=== PATIENT | male | born 1935 | race Caucasian/White ===

== ENCOUNTER 2016-09-06 13:35 | Inpatient (IN) ==
[2016-09-07] MEDS ORDERED: Furosemide 40 MG TABLET PO PRN (18:52)
[2016-09-07] MEDS ORDERED: Acetaminophen 325 MG TABLET PO PRN (18:52)
[2016-09-07] MEDS ORDERED: Loratadine 10 MG TABLET PO PRN (18:52)
[2016-09-07] MEDS ORDERED: Sennosides 8.6 MG TABLET PO PRN (18:52)
[2016-09-07] MEDS ORDERED: *HR* Morphine Sulfate SR (12 HR) 15 MG TABLET.ER PO PRN (18:52)
[2016-09-07] MEDS ORDERED: Magic Mouthwash 10 ML UD Cup PO PRN (18:52)
[2016-09-07] MEDS: Melatonin 3 MG TABLET PO SCH (22:48)
[2016-09-07] MEDS: Mirtazapine 15 MG TABLET PO SCH (22:48)
[2016-09-07] MEDS: Metoprolol XL (24 HR) Succ 25 MG TAB.ER.24H PO SCH (22:48)
[2016-09-07] MEDS: *HR* Morphine Sulfate SR (12 HR) 15 MG TABLET.ER PO SCH (22:49)
[2016-09-08] MEDS: *HR* Enoxaparin 40 MG/0.4 ML SYRINGE SQ SCH (05:06)
[2016-09-08 05:45] LABS: INR 1.2; Prothrombin Time 13.1 Seconds (9.4-12.1)
[2016-09-08 05:48] LABS: Activated Partial Thrombo Time 25.1 Seconds (26.0-36.0)
[2016-09-08 05:50] LABS: Basophils % 0.2 %; Eosinophils # 0.3 K/mcL (0.0-0.6); Eosinophils % 5.3 %; Hematocrit 26.8 % (37.5-50.1); Hemoglobin 9.2 g/dL (12.9-16.9); Immature Granulocytes % 0.4 % (0-4); Lymphocytes # 0.7 K/mcL (0.6-4.6); Lymphocytes % 11.8 %; Mean Corpuscular HGB Conc 34.3 g/dL (31.6-35.5); Mean Corpuscular Hemoglobin 29.6 pg (28.0-33.3); Mean Corpuscular Volume 86.2 fL (83.0-100.0); Mean Platelet Volume 9.5 fL (9.4-12.4); Monocytes # 0.7 K/mcL (0.0-1.3); Monocytes % 13.1 %; Neutrophils # 3.9 K/mcL (1.6-8.9); Platelet Count 301 K/mcL (140-400); Red Blood Count 3.11 M/mcL (4.19-5.50); Red Cell Distribution Width 17.2 % (11.5-14.5); Segmented Neutrophils % 69.2 %
[2016-09-08 05:57] LABS: BUN/Creatinine Ratio 9 (6-26); Blood Urea Nitrogen 6 mg/dL (8-26); Calcium 8.9 mg/dL (8.6-10.8); Carbon Dioxide 20 mEq/L (19-29); Chloride 103 mEq/L (98-109); Glucose 96 mg/dL (70-99); Osmolality,Calculated 273 (280-300); Potassium 4.1 mEq/L (3.5-4.5); Sodium 133 mEq/L (136-145); eGFR For African Americans > 60 (> 60); eGFR For Non-African Americans > 60 (> 60)
[2016-09-08] MEDS: Ondansetron ODT 4 MG TAB.RAPDIS SL PRN (09:47)
[2016-09-08] MEDS: Metoprolol XL (24 HR) Succ 25 MG TAB.ER.24H PO SCH ×2 (10:23→20:30)
[2016-09-08] MEDS: *HR* Morphine Sulfate SR (12 HR) 15 MG TABLET.ER PO SCH ×2 (10:23→17:12)
[2016-09-08] MEDS: Multivit/Ca/Min/Fe/FA 1 TAB TABLET PO SCH (10:27)
[2016-09-08] MEDS: Aspirin Enteric Coated 81 MG Tablet PO SCH (10:28)
[2016-09-08] MEDS: Valsartan 160 MG TABLET PO SCH (10:29)
[2016-09-08] MEDS: RESVERATROL 100 MG PO SCH (10:32)
[2016-09-08] MEDS: *HR* Amiodarone 200 MG TABLET PO SCH (10:32)
[2016-09-08] MEDS: Triamcinolone Acet 0.1% CRM 15 GM TUBE TP SCH (10:32)
[2016-09-08] MEDS: Megestrol Acetate 400 MG/10 ML UDC PO SCH (10:32)
--- NOTE | 2016-09-08 11:57 | Internal Med History&Physical ---
Date of Encounter: 09/08/16 Time of Encounter: 11:54 Internal Medicine - H&P: HPI Chief complaint: Patient deconditioning. has gastric CA. Patient was diagnosed in the ER S Admitted From: Hospital to Hospital Transfer (a) Plans for Post Hospital Care: Home History of present illness: Mr. 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 He has had a 50 pound weight loss last 6 months with the worst being in the last 2. Patient has poor appetite and I just ordered supplements in the form of ensure after each meal and at bedtime), coronary artery disease, hypertension, myocardial infarction, seizures, SVT, other Psychiatric history: no psych history - Past Surgical History Surgical History: appendectomy, cholecystectomy, coronary bypass (CABG) - Social History Smoking Status: Never smoker Smokeless Tobacco Status: No Alcohol use: none Drug use: none - Family History Mother Living Status: Father Living Status: Internal Medicine - H&P: Meds Atorvastatin [Lipitor] 40 mg PO HS 09/28/15 [History] DiphenhydraMINE [Benadryl] 25 mg PO HS 09/28/15 [History] Levothyroxine [Synthroid] 88 mcg PO QAM 09/28/15 [History] Loratadine [Claritin] 10 mg PO DAILY PRN 09/28/15 [History] Melatonin 6 mg PO HS 09/28/15 [History] Multivitamin [Multi-Day Vitamins] 1 each PO DAILY 09/28/15 [History] Omeprazole [PriLOSEC] 40 mg PO BID 09/28/15 [History] Phenytoin ER [Dilantin ER] 200 mg PO TID 09/28/15 [History] Resveratrol 100 mg PO DAILY 09/28/15 [History] Terazosin HCl 4 mg PO HS 09/28/15 [History] Triamcinolone Acetonide 1 appl TP DAILY 09/28/15 [History] Valsartan [Diovan] 320 mg PO DAILY 09/28/15 [History] Lidocaine/Prilocaine CREAM [Emla] 1 appl TP AD PRN #1 tube 10/15/15 [Rx] Magic Mouthwash 5 - 10 ml PO TID PRN #480 ml 12/02/15 [Rx] Aspirin [Lo-Dose Aspirin EC] 81 mg PO DAILY 12/18/15 [History] Mirtazapine [Remeron] 15 mg PO HS #30 tablet 02/03/16 [Rx] Furosemide [Lasix] 40 mg PO DAILY PRN #30 tablet 05/12/16 [Rx] Megestrol Acetate [Megace] 10 ml PO QAM #300 mls 05/17/16 [Rx] Oxycodone HCl [Oxaydo] 5 mg PO Q2H PRN #90 tablet.orl 07/26/16 [Rx] Prochlorperazine Maleate [Compazine] 10 mg PO Q6HR PRN #60 tablet 08/11/16 [Rx] Morphine Sulfate SR (12 HR) [MS Contin] 15 mg PO Q8HR PRN 09/01/16 [History] Sennosides [Senna] 17.2 mg PO HS PRN 09/01/16 [History] Acetaminophen [Tylenol] 650 mg PO Q6HR PRN #0 tablet 09/07/16 [Rx] Amiodarone [Cordarone] 200 mg PO DAILY #30 tablet 09/07/16 [Rx] Docusate [Colace] 100 mg PO BID capsule 09/07/16 [Rx] Metoprolol XL (24 HR) Succ [Toprol Xl] 25 mg PO BID 30 Days 09/07/16 [Rx] Morphine Sulfate SR (12 HR) [MS Contin] 15 mg PO Q8HR tablet.er 09/07/16 [Rx] Potassium Chloride [Klor-Con 10] 10 meq PO DAILY #20 tablet.er 09/07/16 [Rx] Psyllium [Metamucil Fiber Singles Packet] 1 packet PO DAILY PRN #0 powd.pack 10/17 [Rx] Allergies No Known Allergies Allergy (Verified 09/01/16 14:54) All Systems PM: A 10-system review of systems was performed and is negative for pertinent findings except as documented above in the HPI. - Constitutional Vitals: Temp Pulse Resp BP Pulse Ox 98.2 F 71 16 143/71 95 09/08/16 07:36 09/08/16 07:36 09/08/16 07:36 09/08/16 07:36 09/08/16 07:36 - Head Head exam: Present: atraumatic, normocephalic Internal Med - H&P Results - Labs CBC & Chem 7: 09/08/16 05:30 09/08/16 05:30 Labs: Short CBC 09/08/16 Range/Units 05:30 WBC 5.7 (4.3-11.1) K/mcL Hgb 9.2 L (12.9-16.9) g/dL Hct 26.8 L (37.5-50.1) % Plt Count 301 (140-400) K/mcL Neutrophils # 3.9 (1.6-8.9) K/mcL BMP 09/08/16 05:30 Sodium 133 L Potassium 4.1 Chloride 103 Carbon Dioxide 20 BUN 6 L Creatinine 0.64 L Glucose 96 Calcium 8.9 D
[2016-09-08] MEDS: Melatonin 3 MG TABLET PO SCH (20:31)
[2016-09-08] MEDS: Mirtazapine 15 MG TABLET PO SCH (20:31)
[2016-09-09] MEDS: *HR* Morphine Sulfate SR (12 HR) 15 MG TABLET.ER PO SCH ×3 (00:02→17:38)
[2016-09-09] MEDS: Metoprolol XL (24 HR) Succ 25 MG TAB.ER.24H PO SCH ×2 (11:02→21:00)
[2016-09-09] MEDS: Megestrol Acetate 400 MG/10 ML UDC PO SCH (11:02)
[2016-09-09] MEDS: RESVERATROL 100 MG PO SCH (11:03)
[2016-09-09] MEDS: Aspirin Enteric Coated 81 MG Tablet PO SCH (11:03)
[2016-09-09] MEDS: *HR* Enoxaparin 40 MG/0.4 ML SYRINGE SQ SCH (11:03)
[2016-09-09] MEDS: *HR* Amiodarone 200 MG TABLET PO SCH (11:03)
[2016-09-09] MEDS: Valsartan 160 MG TABLET PO SCH (11:06)
[2016-09-09] MEDS: Multivit/Ca/Min/Fe/FA 1 TAB TABLET PO SCH (11:06)
[2016-09-09] MEDS: Triamcinolone Acet 0.1% CRM 15 GM TUBE TP SCH (11:07)
[2016-09-09] MEDS: Melatonin 3 MG TABLET PO SCH (20:58)
[2016-09-09] MEDS: Mirtazapine 15 MG TABLET PO SCH (21:00)
[2016-09-10] MEDS: *HR* Morphine Sulfate SR (12 HR) 15 MG TABLET.ER PO SCH ×5 (00:12→23:38)
[2016-09-10] MEDS: *HR* Enoxaparin 40 MG/0.4 ML SYRINGE SQ SCH (04:32)
[2016-09-10] MEDS: Multivit/Ca/Min/Fe/FA 1 TAB TABLET PO SCH ×2 (08:35→09:00)
[2016-09-10] MEDS: Megestrol Acetate 400 MG/10 ML UDC PO SCH (08:35)
[2016-09-10] MEDS: RESVERATROL 100 MG PO SCH (08:36)
[2016-09-10] MEDS: *HR* Amiodarone 200 MG TABLET PO SCH ×2 (08:37→11:38)
[2016-09-10] MEDS: Aspirin Enteric Coated 81 MG Tablet PO SCH ×2 (08:37→11:38)
[2016-09-10] MEDS: Metoprolol XL (24 HR) Succ 25 MG TAB.ER.24H PO SCH ×3 (08:37→21:52)
[2016-09-10] MEDS: Triamcinolone Acet 0.1% CRM 15 GM TUBE TP SCH (08:59)
[2016-09-10] MEDS: Valsartan 160 MG TABLET PO SCH (08:59)
--- NOTE | 2016-09-10 09:33 | Internal Med Progress Note ---
Date of Encounter: 09/10/16 Time of Encounter: 09:30 - Assessment and plan (1) Physical deconditioning Current Visit: Yes Status: Chronic Assessment and plan: Physical deconditioning secondary to liver cancer. PT and OT continue to work on improving endurance, tolerance, gait, transfer, safety and improving ADL. - Time Spent With Patient less than 15 minutes - Subjective Interval history: No new voiced complaints today. Feels as though he is getting stronger. Still has some swallowing difficulty with pills. Tolerating full liquids. He has been walking yesterday and today. No chest pain or shortness of breath no nausea no vomiting - Constitutional Vitals: Temp Pulse Resp BP Pulse Ox 97.9 F 111 20 148/75 97 09/10/16 07:01 09/10/16 07:01 09/10/16 07:01 09/10/16 07:01 09/10/16 07:01 General appearance: Present: A&O X 3, pleasant, no acute distress - Respiratory Respiratory exam: Present: CTAB. Absent: accessory muscle use, rales, rhonchi, wheezes - Cardiovascular Cardiovascular exam: Present: RRR, +S1, +S2. Absent: diastolic murmur, gallop, rubs, systolic murmur - GI/Abdominal GI/Abdominal exam: Present: normal bowel sounds, soft, no peritoneal signs. Absent: distended, tenderness - Extremities Exam Extremities exam: Present: warm, radial pulses palpable and symetrical. Absent : calf tenderness, cyanotic, pedal edema Internal Medicine: Result - Labs CBC & Chem 7: 09/08/16 05:30 09/08/16 05:30 - ABG Interpretation ABG results: PT/INR, D-dimer PT 13.1 Seconds (9.4-12.1) H 09/08/16 05:30 Consult Discharge Plan - Plan Referrals: Cody Monge MD [Primary Care Provider] -
[2016-09-10] MEDS: Psyllium 1 PACKET POWD.PACK PO PRN (13:38)
[2016-09-10] MEDS: Phenytoin Oral Susp 100 MG/4 ML UDC PO SCH ×2 (15:43→21:58)
[2016-09-10] MEDS: Melatonin 3 MG TABLET PO SCH ×2 (21:52→23:51)
[2016-09-10] MEDS: *HR* OxyCODONE Immed Rel 5 MG TABLET PO PRN (21:53)
[2016-09-10] MEDS: Mirtazapine 15 MG TABLET PO SCH (21:53)
[2016-09-11] MEDS: *HR* OxyCODONE Immed Rel 5 MG TABLET PO PRN (05:10)
[2016-09-11] MEDS: *HR* Enoxaparin 40 MG/0.4 ML SYRINGE SQ SCH (05:11)
--- NOTE | 2016-09-11 08:28 | Internal Med Progress Note ---
Date of Encounter: 09/11/16 Time of Encounter: 08:26 - Assessment and plan (1) Muscular deconditioning Current Visit: Yes Status: Acute Assessment and plan: Patient has gastric CA with metastases to the liver. He has become deconditioned due to treatments and general weight loss. (2) Cancer associated pain Current Visit: No Status: Chronic Assessment and plan: This being taken care of with pain he states is comfortable - Time Spent With Patient less than 15 minutes - Subjective Interval history: Mr. Hicks is no complaints he looks stronger to me and is take care of some of his own personal care - Constitutional Vitals: Temp Pulse Resp BP Pulse Ox 97.9 F 78 18 147/75 97 09/11/16 07:43 09/11/16 07:43 09/11/16 07:43 09/11/16 07:43 09/11/16 07:43 General appearance: Present: A&O X 3, pleasant, no acute distress - Head Head exam: Present: atraumatic, normocephalic - Neck Neck exam general surgery: Present: supple, trachea midline. Absent: lymphadenopathy - Respiratory Respiratory exam: Present: CTAB. Absent: accessory muscle use, rales, rhonchi, wheezes - Cardiovascular Cardiovascular exam: Present: RRR, +S1, +S2. Absent: diastolic murmur, gallop, rubs, systolic murmur Internal Medicine: Result - Labs CBC & Chem 7: 09/08/16 05:30 09/08/16 05:30 Labs: Lab is stable - ABG Interpretation ABG results: PT/INR, D-dimer PT 13.1 Seconds (9.4-12.1) H 09/08/16 05:30 Consult Discharge Plan - Plan Referrals: Cody Monge MD [Primary Care Provider] -
[2016-09-11] MEDS: Ondansetron ODT 4 MG TAB.RAPDIS SL PRN (09:16)
[2016-09-11] MEDS: Phenytoin Oral Susp 100 MG/4 ML UDC PO SCH ×3 (09:51→22:44)
[2016-09-11] MEDS: Multivitamin Liquid 15 ML UDC PO SCH (09:51)
[2016-09-11] MEDS: Valsartan 80 MG TABLET PO SCH (09:52)
[2016-09-11] MEDS: Megestrol Acetate 400 MG/10 ML UDC PO SCH (09:52)
[2016-09-11] MEDS: *HR* Morphine Sulfate SR (12 HR) 15 MG TABLET.ER PO SCH ×2 (09:52→16:12)
[2016-09-11] MEDS: *HR* Amiodarone 200 MG TABLET PO SCH (09:53)
[2016-09-11] MEDS: Triamcinolone Acet 0.1% CRM 15 GM TUBE TP SCH (09:53)
[2016-09-11] MEDS: Aspirin Enteric Coated 81 MG Tablet PO SCH (09:53)
[2016-09-11] MEDS: RESVERATROL 100 MG PO SCH (09:53)
[2016-09-11] MEDS: Metoprolol XL (24 HR) Succ 25 MG TAB.ER.24H PO SCH ×2 (09:53→22:48)
[2016-09-11] MEDS: Melatonin 3 MG TABLET PO SCH (22:48)
[2016-09-11] MEDS: Mirtazapine 15 MG TABLET PO SCH (22:49)
[2016-09-12] MEDS: *HR* Morphine Sulfate SR (12 HR) 15 MG TABLET.ER PO SCH ×4 (00:39→23:26)
[2016-09-12 05:38] LABS: Basophils % 0.1 %; Eosinophils % 0.5 %; Hematocrit 22.8 % (37.5-50.1); Hemoglobin 7.7 g/dL (12.9-16.9); Immature Granulocytes % 0.4 % (0-4); Lymphocytes # 0.5 K/mcL (0.6-4.6); Lymphocytes % 6.9 %; Mean Corpuscular HGB Conc 33.8 g/dL (31.6-35.5); Mean Corpuscular Hemoglobin 29.5 pg (28.0-33.3); Mean Corpuscular Volume 87.4 fL (83.0-100.0); Mean Platelet Volume 9.3 fL (9.4-12.4); Monocytes # 0.6 K/mcL (0.0-1.3); Monocytes % 8.6 %; Neutrophils # 6.2 K/mcL (1.6-8.9); Platelet Count 291 K/mcL (140-400); Red Blood Count 2.61 M/mcL (4.19-5.50); Red Cell Distribution Width 17.9 % (11.5-14.5); Segmented Neutrophils % 83.5 %
[2016-09-12 05:40] LABS: INR 1.3; Prothrombin Time 14.4 Seconds (9.4-12.1)
[2016-09-12 05:42] LABS: Activated Partial Thrombo Time 26.1 Seconds (26.0-36.0)
[2016-09-12 05:53] LABS: BUN/Creatinine Ratio 29 (6-26); Blood Urea Nitrogen 20 mg/dL (8-26); Calcium 8.8 mg/dL (8.6-10.8); Carbon Dioxide 18 mEq/L (19-29); Chloride 102 mEq/L (98-109); Glucose 115 mg/dL (70-99); Osmolality,Calculated 272 (280-300); Potassium 4.6 mEq/L (3.5-4.5); Sodium 129 mEq/L (136-145); eGFR For African Americans > 60 (> 60); eGFR For Non-African Americans > 60 (> 60)
[2016-09-12] MEDS: *HR* Enoxaparin 40 MG/0.4 ML SYRINGE SQ SCH (07:30)
[2016-09-12] MEDS: *HR* Amiodarone 200 MG TABLET PO SCH (08:26)
[2016-09-12] MEDS: Metoprolol XL (24 HR) Succ 25 MG TAB.ER.24H PO SCH ×2 (08:26→21:07)
[2016-09-12] MEDS: Aspirin Enteric Coated 81 MG Tablet PO SCH (08:26)
[2016-09-12] MEDS: Megestrol Acetate 400 MG/10 ML UDC PO SCH (08:27)
[2016-09-12] MEDS: RESVERATROL 100 MG PO SCH (08:27)
[2016-09-12] MEDS: Valsartan 80 MG TABLET PO SCH (08:30)
[2016-09-12] MEDS: Phenytoin Oral Susp 100 MG/4 ML UDC PO SCH ×3 (08:31→21:10)
[2016-09-12] MEDS: Triamcinolone Acet 0.1% CRM 15 GM TUBE TP SCH (08:33)
[2016-09-12] MEDS: Multivitamin Liquid 15 ML UDC PO SCH (08:33)
--- NOTE | 2016-09-12 13:43 | Internal Med Progress Note ---
Date of Encounter: 09/12/16 Time of Encounter: 13:41 - Assessment and plan (1) Muscular deconditioning Current Visit: Yes Status: Acute (2) Cancer associated pain Current Visit: No Status: Chronic - Subjective Interval history: Mr. Hicks is no complaints he looks stronger to me and is take care of some of his own personal care. Mr. Hicks is walked 150 feet. He is taking her personal issues. Very pleased and somewhat surprised that his level. He is due for chemotherapy which were checking on those dates. It seems to knock the starch him for a few days. So we will try to get him up to [place] in terms of his strength. He is eating a little bit and requesting more food so I am going to put him on a soft . Very mild whatever he wishes and has no trouble with a regular diet with ground meat - Constitutional Vitals: Temp Pulse Resp BP Pulse Ox 98.5 F 74 16 108/67 97 09/11/16 19:32 09/11/16 19:32 09/11/16 19:32 09/11/16 19:32 09/11/16 19:32 General appearance: Present: A&O X 3, pleasant, no acute distress - Head Head exam: Present: atraumatic, normocephalic - Neck Neck exam general surgery: Present: supple, trachea midline. Absent: lymphadenopathy - Respiratory Respiratory exam: Present: CTAB. Absent: accessory muscle use, rales, rhonchi, wheezes - Cardiovascular Cardiovascular exam: Present: RRR, +S1, +S2. Absent: diastolic murmur, gallop, rubs, systolic murmur Internal Medicine: Result - Labs CBC & Chem 7: 09/12/16 00:50 09/12/16 00:50 Labs: Short CBC 09/12/16 Range/Units 00:50 WBC 7.4 (4.3-11.1) K/mcL Hgb 7.7 L D (12.9-16.9) g/dL Hct 22.8 L (37.5-50.1) % Plt Count 291 (140-400) K/mcL Neutrophils # 6.2 (1.6-8.9) K/mcL BMP 09/12/16 00:50 Sodium 129 L Potassium 4.6 H Chloride 102 Carbon Dioxide 18 L BUN 20 Creatinine 0.70 L Glucose 115 H Calcium 8.8 - ABG Interpretation ABG results: PT/INR, D-dimer PT 14.4 Seconds (9.4-12.1) H 09/12/16 00:50 Consult Discharge Plan - Plan Referrals: Cody Monge MD [Primary Care Provider] -
[2016-09-12] MEDS ORDERED: D5% in 0.45% NACL 1,000 ML IVC SCH (19:15)
[2016-09-12] MEDS: Melatonin 3 MG TABLET PO SCH (21:04)
[2016-09-12] MEDS: Mirtazapine 15 MG TABLET PO SCH (21:06)
[2016-09-13] MEDS: *HR* OxyCODONE Immed Rel 5 MG TABLET PO PRN ×4 (01:33→20:13)
[2016-09-13 05:48] LABS: BUN/Creatinine Ratio 25 (6-26); Blood Urea Nitrogen 17 mg/dL (8-26); Calcium 8.9 mg/dL (8.6-10.8); Carbon Dioxide 19 mEq/L (19-29); Chloride 100 mEq/L (98-109); Glucose 108 mg/dL (70-99); Osmolality,Calculated 270 (280-300); Potassium 4.7 mEq/L (3.5-4.5); Sodium 129 mEq/L (136-145); eGFR For African Americans > 60 (> 60); eGFR For Non-African Americans > 60 (> 60)
[2016-09-13] MEDS: *HR* Enoxaparin 40 MG/0.4 ML SYRINGE SQ SCH (06:46)
[2016-09-13] MEDS: Megestrol Acetate 400 MG/10 ML UDC PO SCH (08:08)
[2016-09-13] MEDS: *HR* Morphine Sulfate SR (12 HR) 15 MG TABLET.ER PO SCH ×2 (08:08→16:21)
[2016-09-13] MEDS: Metoprolol XL (24 HR) Succ 25 MG TAB.ER.24H PO SCH ×2 (08:09→20:23)
[2016-09-13] MEDS: *HR* Amiodarone 200 MG TABLET PO SCH (08:09)
[2016-09-13] MEDS: RESVERATROL 100 MG PO SCH (08:10)
[2016-09-13] MEDS: Multivitamin Liquid 15 ML UDC PO SCH (08:17)
[2016-09-13] MEDS: Aspirin Enteric Coated 81 MG Tablet PO SCH (08:19)
[2016-09-13] MEDS: Triamcinolone Acet 0.1% CRM 15 GM TUBE TP SCH (08:19)
[2016-09-13] MEDS: Valsartan 80 MG TABLET PO SCH (11:46)
[2016-09-13] MEDS: Phenytoin Oral Susp 100 MG/4 ML UDC PO SCH ×3 (12:13→20:23)
--- NOTE | 2016-09-13 12:26 | Internal Med Progress Note ---
Date of Encounter: 09/13/16 Time of Encounter: 12:24 - Assessment and plan (1) Physical deconditioning Current Visit: Yes Status: Chronic Assessment and plan: Feels more fatigued today. We have learned from his previous hospitalization that there is no further chemotherapy planned by his oncologist. Ears been discussion of palliative care or hospice on the previous hospitalization. Physical deconditioning secondary to liver cancer. PT and OT continue to work on improving endurance, tolerance, gait, transfer, safety and improving ADL. (2) Dehydration, mild Current Visit: Yes Status: Acute Assessment and plan: Was noted to have low urinary output yesterday. IV fluids initiated with some subjective improvement the patient's level of alertness. - Time Spent With Patient less than 15 minutes - Subjective Interval history: No new voiced complaints today. However feels weaker today than usual. He is requesting that we hold off his therapy today. Still has some swallowing difficulty with pills. Tolerating full liquids. He has been walking yesterday and today. No chest pain or shortness of breath no nausea no vomiting - Constitutional Vitals: Temp Pulse Resp BP Pulse Ox 98.0 F 72 18 116/72 97 09/13/16 07:56 09/13/16 07:56 09/13/16 07:56 09/13/16 07:56 09/13/16 07:56 General appearance: Present: A&O X 3, pleasant, no acute distress - Respiratory Respiratory exam: Present: CTAB. Absent: accessory muscle use, rales, rhonchi, wheezes - Cardiovascular Cardiovascular exam: Present: RRR, +S1, +S2. Absent: diastolic murmur, gallop, rubs, systolic murmur - GI/Abdominal GI/Abdominal exam: Present: normal bowel sounds, soft, no peritoneal signs. Absent: distended, tenderness - Extremities Exam Extremities exam: Present: warm, radial pulses palpable and symetrical. Absent : calf tenderness, cyanotic, pedal edema Internal Medicine: Result - Labs CBC & Chem 7: 09/12/16 00:50 09/13/16 05:25 Labs: BMP 09/13/16 05:25 Sodium 129 L Potassium 4.7 H Chloride 100 Carbon Dioxide 19 BUN 17 Creatinine 0.68 L Glucose 108 H Calcium 8.9 - ABG Interpretation ABG results: PT/INR, D-dimer PT 14.4 Seconds (9.4-12.1) H 09/12/16 00:50 Consult Discharge Plan - Plan Referrals: Cody Monge MD [Primary Care Provider] -
[2016-09-13] MEDS: Ondansetron ODT 4 MG TAB.RAPDIS SL PRN (12:33)
[2016-09-13] MEDS: D5% in 0.45% NACL 1,000 ML IVC SCH ×2 (12:34→23:50)
[2016-09-13] MEDS: Mirtazapine 15 MG TABLET PO SCH (20:23)
[2016-09-13] MEDS: Melatonin 3 MG TABLET PO SCH (20:23)
[2016-09-14] MEDS: *HR* Morphine Sulfate SR (12 HR) 15 MG TABLET.ER PO SCH ×3 (00:07→16:08)
[2016-09-14] MEDS: Ondansetron ODT 4 MG TAB.RAPDIS SL PRN (00:14)
[2016-09-14] MEDS: *HR* Enoxaparin 40 MG/0.4 ML SYRINGE SQ SCH (05:27)
[2016-09-14] MEDS: D5% in 0.45% NACL 1,000 ML IVC SCH (09:46)
[2016-09-14] MEDS: Phenytoin Oral Susp 100 MG/4 ML UDC PO SCH ×3 (09:49→20:12)
[2016-09-14] MEDS: Megestrol Acetate 400 MG/10 ML UDC PO SCH (09:49)
[2016-09-14] MEDS: Metoprolol XL (24 HR) Succ 25 MG TAB.ER.24H PO SCH ×2 (09:49→20:12)
[2016-09-14] MEDS: Aspirin Enteric Coated 81 MG Tablet PO SCH (09:49)
[2016-09-14] MEDS: Valsartan 80 MG TABLET PO SCH (09:50)
[2016-09-14] MEDS: Multivitamin Liquid 15 ML UDC PO SCH (09:50)
[2016-09-14] MEDS: *HR* Amiodarone 200 MG TABLET PO SCH (09:50)
[2016-09-14] MEDS: RESVERATROL 100 MG PO SCH (09:50)
[2016-09-14] MEDS: Triamcinolone Acet 0.1% CRM 15 GM TUBE TP SCH (09:50)
--- NOTE | 2016-09-14 12:40 | Physical Med Progress Note ---
Date of Encounter: 09/14/16 Time of Encounter: 12:38 Physical Medicine-PN: Subj Interval history: PMR PCC note Patient has made some improvement in his function. He is able to ambulate with SBA 100-150 feet. Patient was very confused today-not oriented to year or date. Patient upset by his confusion. He will be discharged to home with hospice on 09/16/16. - Constitutional Vitals: Vital Signs Temp Pulse Resp BP Pulse Ox 09/14/16 08:02 99.1 F 87 16 101/64 95 09/13/16 19:28 98.7 F 79 16 131/77 96 Intake and Output 09/13/16 09/14/16 09/14/16 23:59 07:59 15:59 Intake Total 1000 / 1000 Balance 1000 / 1000 Intake: IV Fluids 1000 / 1000 D5% And 0.45% Nacl 1000 1000 / 1000 Ml Bag 1,000 ML @ 100 mls /hr IVC .Q10H LATANYA Rx#: [id number] Other: Meal Breakfast Percent of Meal Consumed 50% Stool Size Moderate Stool Consistency soft formed Stool Color Brown # Voids 1 1 # Bowel Movements 1 Physical Medicine-PN: Obj Data - Labs CBC & Chem 7: 09/12/16 00:50 09/13/16 05:25 - ABG Interpretation ABG results: PT/INR, D-dimer PT 14.4 Seconds (9.4-12.1) H 09/12/16 00:50 Consult Discharge Plan - Plan Referrals: Cody Monge MD [Primary Care Provider] -
--- NOTE | 2016-09-14 15:46 | Psychological Evaluation ---
Date of Encounter: 09/14/16 Time of Encounter: 11:00 History of Present Illness History of present illness: Mr. Hicks is an 81 year old male admitted to [facility] for rehabilitation. He was diagnosed with gastric cancer which has metastasized to his liver. He was seen on this date to assess his current cognitive and emotional functioning. Past Medical History Medical history: Significant for gastric cancer, atrial fibrillation, coronary artery disease, HTN, myocardial infarction and seizures. - Psychiatric History Additional Psychiatric History: There is no history of psychiatric hospitalization. Mr. Hicks reported that he has seen a counselor and been treated by a psychiatrist for anxiety/depression. There is no family history of psychiatric or mental health issues. Home Medications and Allergies Atorvastatin [Lipitor] 40 mg PO HS 09/28/15 [History] DiphenhydraMINE [Benadryl] 25 mg PO HS 09/28/15 [History] Levothyroxine [Synthroid] 88 mcg PO QAM 09/28/15 [History] Loratadine [Claritin] 10 mg PO DAILY PRN 09/28/15 [History] Melatonin 6 mg PO HS 09/28/15 [History] Multivitamin [Multi-Day Vitamins] 1 each PO DAILY 09/28/15 [History] Omeprazole [PriLOSEC] 40 mg PO BID 09/28/15 [History] Phenytoin ER [Dilantin ER] 200 mg PO TID 09/28/15 [History] Resveratrol 100 mg PO DAILY 09/28/15 [History] Terazosin HCl 4 mg PO HS 09/28/15 [History] Triamcinolone Acetonide 1 appl TP DAILY 09/28/15 [History] Valsartan [Diovan] 320 mg PO DAILY 09/28/15 [History] Lidocaine/Prilocaine CREAM [Emla] 1 appl TP AD PRN #1 tube 10/15/15 [Rx] Magic Mouthwash 5 - 10 ml PO TID PRN #480 ml 12/02/15 [Rx] Aspirin [Lo-Dose Aspirin EC] 81 mg PO DAILY 12/18/15 [History] Mirtazapine [Remeron] 15 mg PO HS #30 tablet 02/03/16 [Rx] Furosemide [Lasix] 40 mg PO DAILY PRN #30 tablet 05/12/16 [Rx] Megestrol Acetate [Megace] 10 ml PO QAM #300 mls 05/17/16 [Rx] Oxycodone HCl [Oxaydo] 5 mg PO Q2H PRN #90 tablet.orl 07/26/16 [Rx] Prochlorperazine Maleate [Compazine] 10 mg PO Q6HR PRN #60 tablet 08/11/16 [Rx] Morphine Sulfate SR (12 HR) [MS Contin] 15 mg PO Q8HR PRN 09/01/16 [History] Sennosides [Senna] 17.2 mg PO HS PRN 09/01/16 [History] Acetaminophen [Tylenol] 650 mg PO Q6HR PRN #0 tablet 09/07/16 [Rx] Amiodarone [Cordarone] 200 mg PO DAILY #30 tablet 09/07/16 [Rx] Docusate [Colace] 100 mg PO BID capsule 09/07/16 [Rx] Metoprolol XL (24 HR) Succ [Toprol Xl] 25 mg PO BID 30 Days 09/07/16 [Rx] Morphine Sulfate SR (12 HR) [MS Contin] 15 mg PO Q8HR tablet.er 09/07/16 [Rx] Potassium Chloride [Klor-Con 10] 10 meq PO DAILY #20 tablet.er 09/07/16 [Rx] Psyllium [Metamucil Fiber Singles Packet] 1 packet PO DAILY PRN #0 powd.pack 10/17 [Rx] Allergies No Known Allergies Allergy (Verified 09/01/16 14:54) Social History - Social History Social History: Mr. Hicks is but was unable to say how long he has been . He has four children (3 daughters and one son). He struggled providing dates /ages for his children and was upset/distressed by his inability to remember their ages. He has one stepson (Keith) who lives next door. Mr. Hicks reported that his and his children are his major social support network. He is a retired long distance delivery truck driver heavy. Prior to this hospital admission, he spent his days watching TV and shopping in town. - Tobacco Use Smoking Status: Former smoker - Alcohol Use Alcohol Use: none Cognitive/Emotional Assessment - Cognitive Ability Additional Findings: Mr. Hicks was alert, attentive and responsive. He was oriented for person and place and partially for time (knew the month but not the date or year). He was unable to name the current or past [place] president. He struggled providing personal information and became upset about his impaired memory. He stated "should be able to pop this right off". Speech was fluent but "scratchy". As he became more anxious/distressed, he was noted to stutter/stammer. Thought processes were logical, goal-directed and coherent. - Emotional Status Additional Findings: Mr. Hicks was pleasant, friendly and cooperative. He presented as highly anxious as the session progressed and he struggled answering questions. He noted "this is scary". He also reported that he has been treated for anxiety in the past. Mood was anxious/distressed. Affect was congruent with mood. Assessment & Plan - Diagnosis (1) Adjustment disorder with anxious mood - Treatment Plan Treatment Plan/Recommendations: Mr. Hicks will be discharged to his home with hospice care. There are no recommendations for additional psychological services at this time. He will be given emotional support through his hospice care team. Procedures - Session Time Session Start Time: 11:00 Session Stop Time: 11:30
[2016-09-14] MEDS: Melatonin 3 MG TABLET PO SCH (20:11)
[2016-09-14] MEDS: Mirtazapine 15 MG TABLET PO SCH (20:12)
[2016-09-15] MEDS: *HR* Morphine Sulfate SR (12 HR) 15 MG TABLET.ER PO SCH ×3 (02:21→16:31)
[2016-09-15] MEDS: *HR* Enoxaparin 40 MG/0.4 ML SYRINGE SQ SCH (05:57)
[2016-09-15] MEDS: Phenytoin Oral Susp 100 MG/4 ML UDC PO SCH ×3 (08:43→21:07)
[2016-09-15] MEDS: Megestrol Acetate 400 MG/10 ML UDC PO SCH (08:44)
[2016-09-15] MEDS: Metoprolol XL (24 HR) Succ 25 MG TAB.ER.24H PO SCH ×2 (08:44→21:08)
[2016-09-15] MEDS: Aspirin Enteric Coated 81 MG Tablet PO SCH (08:45)
[2016-09-15] MEDS: *HR* Amiodarone 200 MG TABLET PO SCH (08:45)
[2016-09-15] MEDS: Multivitamin Liquid 15 ML UDC PO SCH (08:47)
[2016-09-15] MEDS: Triamcinolone Acet 0.1% CRM 15 GM TUBE TP SCH (08:48)
[2016-09-15] MEDS: Valsartan 80 MG TABLET PO SCH (08:48)
[2016-09-15] MEDS: Psyllium 1 PACKET POWD.PACK PO PRN (14:07)
--- NOTE | 2016-09-15 14:10 | Internal Med Progress Note ---
Date of Encounter: 09/15/16 Time of Encounter: 14:07 - Assessment and plan (1) Muscular deconditioning Current Visit: Yes Status: Acute Assessment and plan: Stronger walking further. (2) Cancer associated pain Current Visit: No Status: Chronic Assessment and plan: Controlled - Time Spent With Patient less than 15 minutes - Subjective Interval history: Mr. Polo door household distances. He is eating better. He has more choices now and this is encouraged him to increase his intake. - Constitutional Vitals: Temp Pulse Resp BP Pulse Ox 98.8 F 76 16 132/79 96 09/15/16 07:09 09/15/16 07:09 09/15/16 07:09 09/15/16 07:09 09/15/16 07:09 General appearance: Present: A&O X 3, pleasant, no acute distress - Head Head exam: Present: atraumatic, normal inspection, normocephalic - Neck Neck exam general surgery: Present: supple, trachea midline. Absent: lymphadenopathy - Respiratory Respiratory exam: Present: CTAB. Absent: accessory muscle use, rales, rhonchi, wheezes - Cardiovascular Cardiovascular exam: Present: RRR, +S1, +S2. Absent: diastolic murmur, gallop, rubs, systolic murmur Internal Medicine: Result - Labs CBC & Chem 7: 09/12/16 00:50 09/13/16 05:25 Labs: Lab is stable. I am going to check a bilirubin. He looks slightly jaundiced. In the records indicate he is had metastases to liver - ABG Interpretation ABG results: PT/INR, D-dimer PT 14.4 Seconds (9.4-12.1) H 09/12/16 00:50 Consult Discharge Plan - Plan Referrals: Cody Monge MD [Primary Care Provider] -
[2016-09-15] MEDS: Melatonin 3 MG TABLET PO SCH (21:07)
[2016-09-15] MEDS: Mirtazapine 15 MG TABLET PO SCH (21:08)
[2016-09-15] MEDS: Ondansetron ODT 4 MG TAB.RAPDIS SL PRN (21:26)
[2016-09-16] MEDS: *HR* Morphine Sulfate SR (12 HR) 15 MG TABLET.ER PO SCH ×3 (00:15→08:45)
[2016-09-16] MEDS: *HR* Enoxaparin 40 MG/0.4 ML SYRINGE SQ SCH (05:48)
[2016-09-16 07:04] VITALS: BP 119/70
[2016-09-16 07:14] LABS: Bilirubin,Direct 1.1 mg/dL (0.0-0.5); Bilirubin,Indirect 0.4 mg/dL (0.0-1.2); Bilirubin,Total 1.5 mg/dL (0.2-1.2)
[2016-09-16] MEDS: Ondansetron ODT 4 MG TAB.RAPDIS SL PRN (08:36)
[2016-09-16] MEDS: *HR* Amiodarone 200 MG TABLET PO SCH (08:40)
[2016-09-16] MEDS: Megestrol Acetate 400 MG/10 ML UDC PO SCH (08:40)
[2016-09-16] MEDS: Triamcinolone Acet 0.1% CRM 15 GM TUBE TP SCH (08:40)
[2016-09-16] MEDS: Phenytoin Oral Susp 100 MG/4 ML UDC PO SCH (08:40)
[2016-09-16] MEDS: Multivitamin Liquid 15 ML UDC PO SCH (08:40)
[2016-09-16] MEDS: Valsartan 80 MG TABLET PO SCH (08:40)
[2016-09-16] MEDS: Aspirin Enteric Coated 81 MG Tablet PO SCH (08:40)
[2016-09-16] MEDS: Metoprolol XL (24 HR) Succ 25 MG TAB.ER.24H PO SCH (08:41)
[2016-09-16] MEDS: *HR* OxyCODONE Immed Rel 5 MG TABLET PO PRN (11:46)
--- NOTE | 2016-09-16 13:25 | Discharge Summary ---
Date of Encounter: 09/16/16 Time of Encounter: 13:23 - Discharge Diagnosis (1) Muscular deconditioning Priority: Primary Status: Acute (2) Cancer associated pain Priority: Secondary Status: Chronic - Discharge Medications Home Medications: Atorvastatin [Lipitor] 40 mg PO HS 09/28/15 [History] DiphenhydraMINE [Benadryl] 25 mg PO HS 09/28/15 [History] Levothyroxine [Synthroid] 88 mcg PO QAM 09/28/15 [History] Loratadine [Claritin] 10 mg PO DAILY PRN 09/28/15 [History] Melatonin 6 mg PO HS 09/28/15 [History] Multivitamin [Multi-Day Vitamins] 1 each PO DAILY 09/28/15 [History] Omeprazole [PriLOSEC] 40 mg PO BID 09/28/15 [History] Phenytoin ER [Dilantin ER] 200 mg PO TID 09/28/15 [History] Resveratrol 100 mg PO DAILY 09/28/15 [History] Terazosin HCl 4 mg PO HS 09/28/15 [History] Triamcinolone Acetonide 1 appl TP DAILY 09/28/15 [History] Valsartan [Diovan] 320 mg PO DAILY 09/28/15 [History] Lidocaine/Prilocaine CREAM [Emla] 1 appl TP AD PRN #1 tube 10/15/15 [Rx] Magic Mouthwash 5 - 10 ml PO TID PRN #480 ml 12/02/15 [Rx] Aspirin [Lo-Dose Aspirin EC] 81 mg PO DAILY 12/18/15 [History] Mirtazapine [Remeron] 15 mg PO HS #30 tablet 02/03/16 [Rx] Furosemide [Lasix] 40 mg PO DAILY PRN #30 tablet 05/12/16 [Rx] Megestrol Acetate [Megace] 10 ml PO QAM #300 mls 05/17/16 [Rx] Oxycodone HCl [Oxaydo] 5 mg PO Q2H PRN #90 tablet.orl 07/26/16 [Rx] Prochlorperazine Maleate [Compazine] 10 mg PO Q6HR PRN #60 tablet 08/11/16 [Rx] Morphine Sulfate SR (12 HR) [MS Contin] 15 mg PO Q8HR PRN 09/01/16 [History] Sennosides [Senna] 17.2 mg PO HS PRN 09/01/16 [History] Acetaminophen [Tylenol] 650 mg PO Q6HR PRN #0 tablet 09/07/16 [Rx] Amiodarone [Cordarone] 200 mg PO DAILY #30 tablet 09/07/16 [Rx] Docusate [Colace] 100 mg PO BID capsule 09/07/16 [Rx] Metoprolol XL (24 HR) Succ [Toprol Xl] 25 mg PO BID 30 Days 09/07/16 [Rx] Morphine Sulfate SR (12 HR) [MS Contin] 15 mg PO Q8HR tablet.er 09/07/16 [Rx] Potassium Chloride [Klor-Con 10] 10 meq PO DAILY #20 tablet.er 09/07/16 [Rx] Psyllium [Metamucil Fiber Singles Packet] 1 packet PO DAILY PRN #0 powd.pack 10/17 [Rx] Allergies/Adverse Reactions: Allergies No Known Allergies Allergy (Verified 09/01/16 14:54) Date of admission: 09/07/16 17:25 Primary care physician: Cody Monge MD Consults: 09/07/16 18:44 Consult to Nutrition [CONS] Routine Comment: Consulting Provider: NUTRITION Reason for Dietary Consult: MST Score Consult to Physical Medicine/Rehab [CONS] Routine Reason for Consult: deconditioning d/t ca Call Completed: Yes 09/07/16 18:45 Consult to Occupational Therapy [CONS] Routine Comment: Evaluate, develop and implement POC Reason for Consult: deconditioning s/p ca Consult to Physical Therapy [CONS] Routine Comment: Evaluate, develop and implement POC Reason for Consult: deocnditioning s/p ca Consult to Recreational Therapy [CONS] Routine Comment: Evaluate, develop and implement POC Consult to Leasing Machine Tender [CONS] Routine Reason for SW Consult: deconditioning s/p ca 09/08/16 00:27 Consult to Speech Therapy [CONS] Routine Comment: Evaluate, develop and implement POC Reason for Consult: swallow eval: diet change Call Completed: No 09/13/16 14:46 Consult to Psychology [CONS] Routine Consulting Provider: Ernestina Wiggins Reason for Consult: ca stage 4 Time Notified: 14:47 Call Completed: Yes Discharging clinician: Onofre Vance Anticipated date of discharge: 09/16/16 - Patient Status Disposition: Home Health Service Condition: Fair Functional capacity at discharge: uses cane/walker Overall status at discharge: patient is progressing back to baseline - Discharge Instructions Follow Up With: Christina Archer CNP [Partnered Physician] - 09/22/16 9:00 am Cody Monge MD [Primary Care Provider] - 09/23/16 10:00 am - Diet and Activity Activity: ambulate only with your walker Diet: advance to your usual diet Interval History: Patient has gastric CA with metastases to the liver. I did note today that the bilirubin I did is elevated most of its direct. But he was very deconditioned. And he is walking 150 feet going outside and doing well he will be discharged home in the company of his family with hospice. Hospital course: Mr. Hicks is a 81 year old male Who was brought to [facility] for rehabilitation because of gastric CA with metastases to liver. General deconditioning. He is much improved is ambulating eating better and will be discharged home with hospice - Time Spent with Patient Total time spent providing and/or coordinating discharge services: - Constitutional Vitals: Temp Pulse Resp BP Pulse Ox 98.5 F 74 15 119/70 95 09/16/16 07:02 09/16/16 07:02 09/16/16 07:02 09/16/16 07:02 09/16/16 07:02 General appearance: Present: A&O X 3, pleasant, no acute distress - Head Head exam: Present: atraumatic, normal inspection, normocephalic - Respiratory Respiratory exam: Present: CTAB. Absent: accessory muscle use, rales, rhonchi, wheezes - Cardiovascular Cardiovascular exam: Present: RRR, +S1, +S2. Absent: diastolic murmur, gallop, rubs, systolic murmur - GI/Abdominal GI/Abdominal exam: Present: normal bowel sounds, soft, no peritoneal signs. Absent: distended, tenderness
--- NOTE | 2016-09-16 13:27 | Physician Discharge Referral ---
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 For more information, call the [place] Tobacco Quit Line at 0-638-MQME-NOW. - Transfer Medications Home Medications: Atorvastatin [Lipitor] 40 mg PO HS 09/28/15 [History] DiphenhydraMINE [Benadryl] 25 mg PO HS 09/28/15 [History] Levothyroxine [Synthroid] 88 mcg PO QAM 09/28/15 [History] Loratadine [Claritin] 10 mg PO DAILY PRN 09/28/15 [History] Melatonin 6 mg PO HS 09/28/15 [History] Multivitamin [Multi-Day Vitamins] 1 each PO DAILY 09/28/15 [History] Omeprazole [PriLOSEC] 40 mg PO BID 09/28/15 [History] Phenytoin ER [Dilantin ER] 200 mg PO TID 09/28/15 [History] Resveratrol 100 mg PO DAILY 09/28/15 [History] Terazosin HCl 4 mg PO HS 09/28/15 [History] Triamcinolone Acetonide 1 appl TP DAILY 09/28/15 [History] Valsartan [Diovan] 320 mg PO DAILY 09/28/15 [History] Lidocaine/Prilocaine CREAM [Emla] 1 appl TP AD PRN #1 tube 10/15/15 [Rx] Magic Mouthwash 5 - 10 ml PO TID PRN #480 ml 12/02/15 [Rx] Aspirin [Lo-Dose Aspirin EC] 81 mg PO DAILY 12/18/15 [History] Mirtazapine [Remeron] 15 mg PO HS #30 tablet 02/03/16 [Rx] Furosemide [Lasix] 40 mg PO DAILY PRN #30 tablet 05/12/16 [Rx] Megestrol Acetate [Megace] 10 ml PO QAM #300 mls 05/17/16 [Rx] Oxycodone HCl [Oxaydo] 5 mg PO Q2H PRN #90 tablet.orl 07/26/16 [Rx] Prochlorperazine Maleate [Compazine] 10 mg PO Q6HR PRN #60 tablet 08/11/16 [Rx] Morphine Sulfate SR (12 HR) [MS Contin] 15 mg PO Q8HR PRN 09/01/16 [History] Sennosides [Senna] 17.2 mg PO HS PRN 09/01/16 [History] Acetaminophen [Tylenol] 650 mg PO Q6HR PRN #0 tablet 09/07/16 [Rx] Amiodarone [Cordarone] 200 mg PO DAILY #30 tablet 09/07/16 [Rx] Docusate [Colace] 100 mg PO BID capsule 09/07/16 [Rx] Metoprolol XL (24 HR) Succ [Toprol Xl] 25 mg PO BID 30 Days 09/07/16 [Rx] Morphine Sulfate SR (12 HR) [MS Contin] 15 mg PO Q8HR tablet.er 09/07/16 [Rx] Potassium Chloride [Klor-Con 10] 10 meq PO DAILY #20 tablet.er 09/07/16 [Rx] Psyllium [Metamucil Fiber Singles Packet] 1 packet PO DAILY PRN #0 powd.pack 10/17 [Rx] Allergies/Adverse Reactions: Allergies No Known Allergies Allergy (Verified 09/01/16 14:54) Certification: Further, I certify that my clinical findings support that this patient is homebound (i.e. absences from home require considerable and taxing effort and are for medical reasons or [employer] services or infrequently or short duration when for other reasons) because: Homebound Reason: Patient requires assistance of a person or device to safely leave home Attestation: My signature below is to certify that this patient is under my care and that I, or nurse practitioner, or a physician's staffing assistant working with me, has a face-to -face encounter with this patient.
== END 2016-09-16 14:00 | disposition hospice, home (50) | DRG 945 ==
LOC: INPGRE 09-07 17:25
PROVIDERS: ADMIT Internal Medicine; ATTEND Internal Medicine